=== PATIENT | female | born 1995 | race Two or more races ===

== ENCOUNTER 2022-09-13 16:31 | Emergency (ER) | payer OTHER, SELFPAY ==
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
[2022-09-13 16:41] VITALS: BP 126/76; PULSE 102; O2SAT 98
[2022-09-13 16:42] VITALS: BP 130/88; PULSE 101; RESP 18; TEMP 36.6; O2SAT 98; BMI 30.1
[2022-09-13 17:35] LABS: HCG Quantitative < 2 mIU/mL
[2022-09-13] MEDS: Ketorolac Tromethamine 30 MG/ML VIAL IM (18:30)
--- NOTE | 2022-09-13 18:46 | PC.NURSE ---
pt refused tdap booster- rec 2yrs ago per pt
== END 2022-09-13 19:09 | disposition home or self-care (01) ==
PROVIDERS: Physician Assistant; Emergency Provider Emergency Medicine; PCP Internal Medicine
DX: S06.0X0A Concussion without loss of consciousness, initial encounter (principal); V43.62XA Car passenger injured in collision with other type car in traffic accident, initial encounter; S01.81XA Laceration without foreign body of other part of head, initial encounter; Y04.2XXA Assault by strike against or bumped into by another person, initial encounter; R51.9 Headache, unspecified; Z32.02 Encounter for pregnancy test, result negative; Y93.89 Activity, other specified; Y92.414 Local residential or business street as the place of occurrence of the external cause; Y99.9 Unspecified external cause status
CPT/HCPCS: 12011; 36415; 70450; 72125; 84702; 96372; 99283; 99284; J1885